=== PATIENT | male | born 1940 | race Caucasian/White ===

== ENCOUNTER → 2016-04-30 | Outpatient (CLI) | payer OTHER ==
[~2016-04-30] MED LIST: ANTIVERT25 MG PO; ASPIRIN81 M2 PO; CITRATE OF MAG296 ML PO; COLACE100 MG PO; DOXYCYCLINE 10100 MG PO; FINASTERIDE1 MG PO; FLOMAX0.4 MG PO; LISINOPRIL5 MG PO; MIRALAX17 GM PO; MIRALAX255 GM PO; NAPROSYN500 MG PO; NITROGLYCERIN0.4 MG SUBLING; SIMVASTATIN20 MG PO
== END ==
LOC: RAD 02:04
DX: K59.00 Constipation, unspecified (principal); R10.9 Unspecified abdominal pain

== ENCOUNTER → 2016-06-01 | Outpatient (CLI) | payer OTHER | LOC: CAT 09:08 | DX: K92.0 Hematemesis (principal); R91.8 Other nonspecific abnormal finding of lung field ==

== ENCOUNTER → 2016-06-14 | Outpatient (CLI) | payer OTHER | LOC: CAT 10:07 | DX: R91.8 Other nonspecific abnormal finding of lung field (principal) ==

== ENCOUNTER → 2016-11-03 | Outpatient (CLI) | payer OTHER | LOC: CAT 09:15 | DX: J47.9 Bronchiectasis, uncomplicated (principal) ==

== ENCOUNTER → 2016-12-13 | Outpatient (CLI) | payer OTHER | LOC: RAD 08:57 | DX: R07.9 Chest pain, unspecified (principal); R91.8 Other nonspecific abnormal finding of lung field ==

== ENCOUNTER → 2017-01-19 | Outpatient (CLI) | payer OTHER | LOC: CAT 09:07 | DX: J47.9 Bronchiectasis, uncomplicated (principal); R91.8 Other nonspecific abnormal finding of lung field ==

== ENCOUNTER → 2017-02-10 | Outpatient (CLI) | payer OTHER ==
[~2017-02-10] MED LIST changes: +ASPIR 8181 MG PO; +ATORVASTATIN CA40 MG PO; +AZITHROMYCIN 2250 MG PO; +DULCOLAX5 MG PO; +IMDUR 30 MG TAB30 M1 PO; +LIPITOR 20 MG T20 M1 PO; +LISINOPRIL10 MG PO; +MYAMBUTOL 400400 M1 PO; +PROSCAR 5MG TABL5 MG PO; +RIFAMPIN 300 M300 M1 PO
--- NOTE | ~2017-02-10 | O ---
[facility] [place] [address] OPERATIVE REPORT Name: RICKIE SEGURA Room #: REG [facility]#: [id number] Admission: 02/10/17 Attend Phys: Bo Freeman MD Discharge: Date of : 42 Report #: [id number] THIS REPORT FOR: //name// CC: Geraldo Freeman CLINICAL HISTORY: A 76-year-old white male with progressive infiltrates. The patient has been followed by Dr. Shade Santos. Concerns are possible chronic infectious processes such as Mycobacterium avium. A diagnostic bronchoscopy was performed. POSTOPERATIVE DIAGNOSIS: Mild purulent secretion seen involving the right lower lobe and the right middle lobe. Bronchoalveolar lavage was performed in the right middle lobe and right lower lobe. DESCRIPTION OF PROCEDURE: Following obtained consent and risks and benefits been explained to the patient, which included infection, bleeding, pneumothorax, the procedure was performed in the endoscopy suite. He received total 2 mg of Versed IV, fentanyl 100 mg IV. He also received nebulized lidocaine at 4% and 1% lidocaine was also used in the upper airways. A flexible fiberoptic bronchoscope was then introduced through the left naris without difficulty. We had to use a nasal Q-tip to widen the nasal passage with lidocaine jelly. The epiglottis was normal. Vocal cords were normal. Trachea was normal. Tonya was normal. The left main stem bronchus, left upper lobe and left lower lobe was normal. Right main stem bronchus were normal. Right upper lobe was normal. Right middle lobe had mild purulent secretions seen. Right lower lobe had mild purulent secretions seen emanating from the superior basal segment along with the posterior basal segment. The mucosa was mildly erythematous involving the right lower lobe and right middle lobe. Otherwise, no endobronchial lesion seen. Bronchoalveolar lavage was performed at the right middle lobe and right lower lobe at the proximal superior basal segment and the lateral basal segment with several aliquots of 20 mL of normal saline. With adequate return in the bronchial lavage ____, the specimen will be sent for microbiologic studies including Gram stain, culture and sensitivity, AFB smear, fungal smear along with cultures. Cytology will be also sent. [facility] [address] [place] [address] OPERATIVE REPORT Name: RICKIE SEGURA Room #: REG [facility].#: [id number] Admission: 02/10/17 Attend Phys: Bo Freeman MD Discharge: Date of : 41 Report #: [id number] The patient tolerated the procedure well, no complications. Vital signs and saturation throughout the study were within normal range. <ELECTRONICALLY SIGNED> By: Bo Freeman MD 02/11/17 1658 1709 1751 Bo Freeman MD /nt
--- NOTE | ~2017-02-10 | CNG ---
[facility] [place] [address] CYTO-NONGYN REPORT PROCEDURE Name: JAY,ART L Room #: REG LISA Jordan.#: [id number] Admission: 02/10/17 Date of : 42 Discharge: Report #: [id number] Path Case #: [id number] CYTOPATHOLOGY REPORT COLLECTION DATE: 02/10/2017 RECEIVED DATE: 02/10/2017 SUBMITTING PHYS: JACK Moses OTHER PHYS: Dr. Bo Shultz CLINICAL HISTORY: Progressive pulmonary infiltrates SPECIMEN(S) RECEIVED: A.Bronchoalveolar lavage, Right lower lobe * * * * * * * * * * * * FINAL DIAGNOSIS: A. Bronchoalveolar lavage, Right lower lobe: - No malignant epithelial cells identified. Bronchial epithelial cells and alveolar macrophages are present in a background of acute inflammation and debris. PATHOLOGIST: Lee Ann Ibarra M.D. REPORT ELECTRONICALLY SIGNED BY: Lee Ann Ibarra M.D. DATE/TIME: 02/11/2017 13:59 * * * * * * * * * * * * GROSS PATHOLOGY: A. Bronchoalveolar lavage, Right lower lobe: The specimen is submitted unfixed, labeled "Jay, Art L". Received by the Cytology Department is 15 mL of cloudy pink fluid. One ThinPrep slide was prepared. (lg02.10.2017) AIR FILLER(S): T[facility]AS Cerda[facility] INITIAL CPT CODE(S): A; 35684 Professional services performed by [facility] at [facility] [address], [place] [address] Technical services performed by [facility] at [address] [place] [address]., [address], [place] [address]. [facility] [address] [place] [address] CYTO-NONGYN REPORT PROCEDURE Name: RICKIE SEGURA Room #: MOISÉS Guzman#: [id number] Admission: 02/10/17 Date of : 42 Discharge: Report #: [id number] Path Case #: [id number] [place] [address] [address] [place] [address] PHONE: [phone] DIRECTOR: Tawanda Hernandez M.D. * * * END OF REPORT * * *
== END | disposition home or self-care (01) ==
LOC: CATH 06:39
DX: J20.9 Acute bronchitis, unspecified (principal); J98.8 Other specified respiratory disorders; Z79.82 Long term (current) use of aspirin; Z79.899 Other long term (current) drug therapy

== ENCOUNTER → 2017-03-03 | Outpatient (CLI) | payer OTHER ==
--- NOTE | ~2017-03-03 | HC ---
[facility] [place] [address] CONSULTATION Name: RICKIE SEGURA [facility] [id number] Admission: 03/03/17 Attend Phys: Julio C Lopez Discharge: Date of : 41 Report #: [id number] THIS REPORT FOR: //name// CC: Julio C Bowman MD DATE OF SERVICE: 03/03/2017 REASON FOR CONSULTATION: Mycobacterium avium lung infection. HISTORY OF PRESENT ILLNESS: The patient is a 76-year-old white man with history of bronchiectasis, referred for Infectious Disease opinion by Dr. Shade Santos. The patient for the most part is doing fairly well. He underwent a bronchoscopy by Dr. Bo Freeman on 02/10/2017 and the sputum culture revealed growth of Mycobacterium avium. Dr. Shade Santos did contact me sometime this week and requested an Infectious Disease opinion regarding Mycobacterium avium lung infection. The patient is doing fairly well. He has occasional sputum production. He has no systemic symptoms that suggest active ongoing infection. The patient's main concern is the fact that he had many CT scans of the chest and brings a magazine that discusses the risks involved with frequent exposure to radiation. DRUG ALLERGIES: None listed. MEDICATIONS: Aspirin 81 mg daily, atorvastatin 40 mg daily, docusate 100 mg daily, finasteride 5 mg daily, lisinopril 10 mg daily, p.r.n. nitroglycerin, polyethylene glycol daily, tamsulosin 0.4 mg daily. PAST MEDICAL HISTORY: Carotid artery disease, moderate disease on ultrasound. Coronary artery disease, coronary artery stenting in 1998. Previous episode of hemoptysis. Dyslipidemia. Hypertension. REVIEW OF SYSTEMS: Not much respiratory symptoms, but he is concerned about his significant weight loss of lately. 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 SOCIAL HISTORY: . One son and one daughter. They do not live here in town. The patient for the most part is rather lonesome. No tobacco. No alcohol. PHYSICAL EXAMINATION: GENERAL: A well-developed man. No distress. VITAL SIGNS: Weight 143 pounds, height 5 feet 11 inches, BP 141/71, pulse 66, [facility] [address] [place] [address] CONSULTATION Name: RICKIE SEGURA Room #: [facility]#: [id number] Admission: 03/03/17 Attend Phys: Julio C Lopez Discharge: Date of : 41 Report #: [id number] temperature 97.6, O2 saturation 98% on room air. HEENMT: Head normocephalic, atraumatic. Pupils reactive. Mouth: Upper and lower plates. NECK: Supple, no thyromegaly. LUNGS: Clear. HEART: S1, S2. No gallop or murmur. ABDOMEN: Soft, no masses or megaly. GENITALIA: Reveals atrophic testicles. LYMPH NODE: Negative. SKIN: Revealed multiple seborrheic keratoses in posterior chest. NEUROLOGIC: Grossly within normal limits. LABORATORY DATA: Sputum culture has revealed Mycobacterium avium complex on 02/10/2017, bronchoscopy specimen. I did request from the microbiology laboratory to perform sensitivity against antimycobacterial antibiotics. I did review CT scan of the chest from 01/19/2017 and note is made that the patient have bronchiectasis and nodular lesions, particularly on the right lung that has progressed compared to previous CT scans. The patient has expressed concern about many CT scans obtained in the last couple of years. ASSESSMENT: 1. Mycobacterium avium complex lung infection. 2. Bronchiectasis. 3. Coronary artery disease, status post stenting. 4. Weight loss, question etiology. 5. Question mild depression. SUGGESTIONS: Discuss treatment with 2 or 3 antimycobacterial antibiotics. The recommendation of antibiotic regimen is still pending sensitivity results that has been ordered today. The patient will contact me in a couple of weeks and I will try to see him in 2 to 3 weeks should sensitivities be ready, otherwise will postpone visit again. Final recommendation regarding regimen against Mycobacterium avium and duration of treatment pending sensitivity results. Dr. Santos, thank you for requesting my suggestions. <ELECTRONICALLY SIGNED> By: Julio C Manzo MD 03/04/17 0959 1430 1927 Julio C Manzo MD /nt
== END ==
LOC: SEN 09:02
DX: J47.9 Bronchiectasis, uncomplicated (principal); A31.0 Pulmonary mycobacterial infection; I25.10 Atherosclerotic heart disease of native coronary artery without angina pectoris; I10 Essential (primary) hypertension; R63.4 Abnormal weight loss; F32.9 Major depressive disorder, single episode, unspecified; Z95.5 Presence of coronary angioplasty implant and graft

== ENCOUNTER → 2017-03-30 | Outpatient (CLI) | payer OTHER ==
[2017-03-30 11:47] VITALS: BP 141/70
== END ==
LOC: SEN 08:43
DX: I25.10 Atherosclerotic heart disease of native coronary artery without angina pectoris (principal); E78.5 Hyperlipidemia, unspecified; J47.9 Bronchiectasis, uncomplicated

== ENCOUNTER → 2017-04-13 | Outpatient (CLI) | payer OTHER ==
[~2017-04-13] VITALS: Ht 182.9 cm; Wt 61.7 kg
[2017-04-13 11:14] VITALS: BP 137/68
== END ==
LOC: SEN 08:29
DX: J06.9 Acute upper respiratory infection, unspecified (principal)

== ENCOUNTER → 2017-05-04 | Outpatient (CLI) | payer OTHER ==
[~2017-05-04] MED LIST changes: -ASPIR 8181 MG PO; -ATORVASTATIN CA40 MG PO; -DULCOLAX5 MG PO; -IMDUR 30 MG TAB30 M1 PO
[2017-05-04 11:06] VITALS: BP 127/71
[2017-05-04 12:06] LABS: HEMATOCRIT 40.1 % (42.0-52.0); HEMOGLOBIN 13.4 gm/dL (14.0-18.0); MCH 30.6 pg (26.0-34.0); MCHC 33.5 g/dL (28.0-37.0); MCV 91.5 fL (80.0-100.0); PLATELET COUNT 195 thou/uL (150-400); RBC 4.38 mil/uL (4.50-6.00); RDW 15.3 % (10.5-14.5); WBC 6.6 thou/uL (4.0-11.0)
[2017-05-04 12:21] LABS: ALBUMIN 3.4 g/dL (3.4-5.0); CALCIUM 8.8 mg/dL (8.5-10.1); CREATININE 0.9 mg/dL (0.7-1.3); POTASSIUM 3.8 mmol/L (3.5-5.1); TOTAL BILIRUBIN 0.5 mg/dL (<0.1-1.0); TOTAL PROTEIN 7.2 g/dL (6.4-8.2)
[2017-05-04 13:07] LABS: ABSOLUTE NEUTROPHILS 4.6 thou/uL (1.4-8.2); PLATELET ESTIMATE NORMAL
== END ==
LOC: SEN 08:22
PROVIDERS: Internal Medicine Infectious Disease
DX: J06.9 Acute upper respiratory infection, unspecified (principal)

== ENCOUNTER → 2017-06-09 | Outpatient (CLI) | payer OTHER ==
[~2017-06-09] VITALS: Ht 180.3 cm; Wt 63.3 kg
[2017-06-09 11:09] VITALS: BP 139/60
[2017-06-09 12:06] LABS: ABSOLUTE NEUTROPHILS 4.4 thou/uL (1.4-8.2); BASOPHILS 1.2 % (0.0-2.0); EOSINOPHILS 1.2 % (0.0-3.0); HEMATOCRIT 39.9 % (42.0-52.0); HEMOGLOBIN 13.4 gm/dL (14.0-18.0); LYMPHOCYTES 17.6 % (24.0-44.0); MCHC 33.7 g/dL (28.0-37.0); MCV 91.9 fL (80.0-100.0); MONOCYTES 11.4 % (1.0-8.0); PLATELET COUNT 222 thou/uL (150-400); POLYS 68.6 % (36.0-66.0); RBC 4.34 mil/uL (4.50-6.00); RDW 15.5 % (10.5-14.5); WBC 6.4 thou/uL (4.0-11.0)
[2017-06-09 12:20] LABS: ALBUMIN 3.7 g/dL (3.4-5.0); CALCIUM 8.9 mg/dL (8.5-10.1); CREATININE 0.9 mg/dL (0.7-1.3); POTASSIUM 4.1 mmol/L (3.5-5.1); TOTAL BILIRUBIN 0.3 mg/dL (<0.1-1.0); TOTAL PROTEIN 7.3 g/dL (6.4-8.2)
== END ==
LOC: SEN 10:30
PROVIDERS: Internal Medicine Infectious Disease
DX: Z01.818 Encounter for other preprocedural examination (principal); I10 Essential (primary) hypertension; E78.00 Pure hypercholesterolemia, unspecified; H90.5 Unspecified sensorineural hearing loss

== ENCOUNTER 2017-06-22 19:03 | Inpatient (IN) | payer OTHER ==
[~2017-06-22] VITALS: Ht 182.9 cm; Wt 68.2 kg
--- NOTE | ~2017-06-22 | CATHLAB ---
[facility] [place] [address] INVASIVE PROCEDURE REPORT Name: RICKIE SEGURA Room #: 206-P [facility] IN ..#: [id number] Admission: 06/22/17 Attend Phys: Hemanth Jackson, Discharge: 06/24/17 Date of : 42 Date of Service: 06/27/17 1003 Report #: [id number] THIS REPORT FOR: //name// APPROVED REPORT Study performed: 06/24/2017 07:26:32 Patient Details Patient Status: Out-Patient Room #: The patient is a 76 year-old male Event Personnel Rosales Wyatt B2B Sales Consultant, Minerva Lord RN RN, Reyna Ku Sandifer, David Monitor Procedures Performed Left Heart Cath w/or w/o Coronaries [id number] [facility], supervision of conscious sedation Indication Positive stress test, Chest pain Risk Factors Coronary Artery DiseaseHypertension Procedure Narrative The Right Groin^ was infiltrated with 1% Lidocaine subcutaneous anesthesia. A PINNACLE 4FR Sheath #[id number] sheath was inserted into the RFA^. Coronary angiography was performed using coronary diagnostic catheters. The right coronary system was accessed and visualized with a JR4 catheter. The left coronary system was accessed and visualized with a JL4 catheter. The left ventricle was accessed and visualized with a PIGTAIL catheter. Left ventricular/Aortic Valve gradient assessed via catheter pullback. Hemostasis was obtained with manual pressure following sheath removal without any complications. There was no hematoma. Intraoperative Conscious Sedation Sedation start time: 9.06 Case end Time: .18 Fluoro Time: 2.08 minutes Dose: 2.08 mGy Contrast Type and Amount: Omnipaque 50 ml Coronary Angiography [facility] [place] [address] [place] [address] INVASIVE PROCEDURE REPORT Name: RICKIE SEGURA Michelle Room #: 206-P [facility].#: [id number] Admission: 06/22/17 Attend Phys: Hemanth Jackson, Discharge: 06/24/17 Date of : 42 Date of Service: 06/27/17 1003 Report #: [id number] The patient's coronary anatomy is right dominant. Diagnostic Cath Left Main Normal origin and caliber bifurcates left anterior descending left circumflex free of high-grade disease LAD Her caliber vessel which has a stent in the proximal region with approximately 30-50% in-stent restenosis. Does not appear to be flow-limiting. The LAD then continues on in the anterior interventricular sulcus with the distal third vessel size of approximately 1.2 mm in diameter there is a lesion that appears to be greater than 60-70%. It does not slow flow. The vessel continues on terminating as a bifurcating vessel at the apex Diagonal 1 Small-caliber vessel with moderate luminal irregularities noted. He has a 50% ostial lesion Circumflex Moderate caliber vessel normal origin proceeds in the AV groove posteriorly with her is a proximally 50% lesion prior to bifurcation to a marginal branches. Then terminates as a posterior wall marginal branch OM1 Moderate caliber vessel coursing along the lateral aspect of the heart with luminal irregularities but no high-grade lesions OM2 Small-caliber vessel and the posterior lateral wall of the heart where there is a moderate lesion at its course but does not appear to be flow-limiting. The vessel is small in diameter Right Coronary Normal origin and caliber proceeds in the AV groove giving rise to small marginal branches and proceeds posteriorly giving rise to posterior descending artery and posterior wall circulation. At the acute margin there is some "haziness" but does not appear to be significant lesion present R PDA SMALL caliber vessel without significant high-grade lesions Left Ventriculography Left Ventriculography was not performed. Hemodynamics The aortic pressure is 147/68 mmHg with a mean of 97 mmHg. The left ventricular pressure is 161/9 mmHg with a mean of mmHg. The left ventricular end diastolic pressure is 23 mmHg. There was no gradient across the aortic valve upon pullback. Pullback from the left ventricle to the aorta revealed no gradient across the aortic valve. Conclusion 1. Coronary artery disease, three-vessel A. moderate to high-grade distal LAD and a small-caliber vessel [address] [address] INVASIVE PROCEDURE REPORT Name: RICKIE SEGURA Room #: 206-P [facility] IN M.R.#: [id number] Admission: 06/22/17 Attend Phys: Hemanth Jackson, Discharge: 06/24/17 Date of : 42 Date of Service: 06/27/17 1003 Report #: [id number] B. moderate stenosis of the second marginal branch which is small caliber 2. Abnormal hemodynamics with mildly elevated left ventricular end-diastolic pressure Recommendations Cardiac Risk Reduction Program Aggressive Medical Therapy <ELECTRONICALLY SIGNED> By: Rosales Wyatt MD 06/27/171002 02 02 Rosales Wyatt MD /INF
--- NOTE | ~2017-06-22 | EKG ---
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
--- NOTE | ~2017-06-22 | 2DMMODE ---
[facility] [address] [place] [address] 2 D/M-MODE ECHOCARDIOGRAM Name: BRUNOCASIESADARICKIE Room #: 206-P [facility] .R.#: [id number] Admission: 06/22/17 Attend Phys: Hemanth Jackson, Discharge: Date of : 42 Date of Service: 06/23/17 1235 Report #: [id number] THIS REPORT FOR: //name// APPROVED REPORT Study performed: 06/23/2017 11:30:25 EXAM: Comprehensive 2D, Doppler, and color-flow Echocardiogram Patient Location: Echo lab Room #: 206 Status: routine BSA: 1.88 HR: 56 bpm BP: 126/68 mmHg Rhythm: NSR Other Information Study Quality: Good/Low parasternal window Indications Chest pain, HTN. Hx: CAD, stent, HTN, HLP, COPD 2D Dimensions RVDd: 40.57 mm LVEF(%): 65.91 (>50%) IVSd: 9.27 (7-11mm) LVOT Diam: 19.65 (18-24mm) LVDd: 44.53 mm PWd: 8.18 (7-11mm) LVDs: 28.45 (25-40mm) Aortic Root: 35.13 mm He's LVEF: 65.91 % Volumes Left Atrial Volume (Systole) Single Plane 4CH: 41.47 mL Single Plane 2CH: 45.77 mL LA ESV Index: 25.00 mL/m2 Aortic Valve AoV Peak Mir.: 1.34 m/s AO Peak Gr.: 7.13 mmHg LVOT Max P.32 mmHg LVOT Max V: 1.04 m/s ABDI Vmax: 2.36 cm2 Mitral Valve E/A Ratio: 1.3 MV Decel. Time: 165.23 ms [facility] [place] [address] 2 D/M-MODE ECHOCARDIOGRAM Name: RICKIE SEGURA Room #: 206-P [facility] M.R.#: [id number] Admission: 06/22/17 Attend Phys: Hemanth Jackson, Discharge: Date of : 42 Date of Service: 06/23/17 1235 Report #: [id number] MV E Max Mir.: 0.84 m/s MV A Mir.: 0.64 m/s MV PHT: 47.92 ms IVRT: 78.43 ms Pulmonary Valve PV Peak Mir.: 1.57 m/s PV Peak Gr.: 9.82 mmHg Pulmonary Vein P Vein S: 0.59 m/s P Vein A: 0.38 m/s P Vein D: 0.63 m/s P Vein A Dur.: 133.8 msec P Vein S/D Ratio: 0.94 Tricuspid Valve TR Peak Mir.: 2.62 m/s RAP Estimate: 5.00 mmHg TR Peak Gr.: 27.43 mmHg PA Pressure: 32.00 mmHg Left Ventricle The left ventricle is normal size. There is normal LV segmental wall motion. There is normal left ventricular wall thickness. Left ventricular systolic function is normal. LVEF is 55-60%. Moderate diastolic dysfunction is present (pseudonormal filling). Right Ventricle The right ventricle is normal size. The right ventricular systolic function is normal. Atria The left atrium size is normal. The right atrium size is normal. Aortic Valve The Aortic valve is sclerotic. No aortic regurgitation is present. There is no aortic valvular stenosis. Mitral Valve Mitral valve leaflets are calcified. Trace mitral regurgitation. No evidence of mitral valve stenosis. Tricuspid Valve The tricuspid valve is normal in structure. Mild tricuspid regurgitation. Estimated PAP is 30-35mmHg. Pulmonic Valve The pulmonary valve is normal in structure. [place] [address] 2 D/M-MODE ECHOCARDIOGRAM Name: RICKIE SEGURA Room #: 206-P [facility] IN [facility]#: [id number] Admission: 06/22/17 Attend Phys: Hemanth Jackson, Discharge: Date of : 42 Date of Service: 06/23/17 1235 Report #: [id number] valvular regurgitation. Great Vessels The aortic root is normal in size. Aortic arch is not well visualized. IVC is normal in size and collapses >50% with inspiration. Pericardium There is no pericardial effusion. <Conclusion> The left ventricle is normal size. LVEF is 55-60%. The Aortic valve is sclerotic. No aortic regurgitation is present. There is no aortic valvular stenosis. Mitral valve leaflets are calcified. Trace mitral regurgitation. No evidence of mitral valve stenosis. The tricuspid valve is normal in structure. Mild tricuspid regurgitation. Estimated PAP is 30-35mmHg. The pulmonary valve is normal in structure. Aortic arch is not well visualized. There is no pericardial effusion. <ELECTRONICALLY SIGNED> By: Rosales Wyatt MD 06/23/17 1235 1235 1235 Rosales Wyatt MD /INF
[2017-06-22 19:10] VITALS: BP 154/84
[2017-06-22] MEDS ORDERED: DULCOLAX5 MG PO (19:24)
[2017-06-22 19:35] LABS: ABSOLUTE NEUTROPHILS 3.5 thou/uL (1.4-8.2); BASOPHILS 0.2 % (0.0-2.0); EOSINOPHILS 2.2 % (0.0-3.0); HEMATOCRIT 39.6 % (42.0-52.0); HEMOGLOBIN 13.3 gm/dL (14.0-18.0); LYMPHOCYTES 25.4 % (24.0-44.0); MCHC 33.5 g/dL (28.0-37.0); MCV 92.4 fL (80.0-100.0); MONOCYTES 11.4 % (1.0-8.0); PLATELET COUNT 234 thou/uL (150-400); POLYS 60.8 % (36.0-66.0); RBC 4.29 mil/uL (4.50-6.00); RDW 15.9 % (10.5-14.5); WBC 5.7 thou/uL (4.0-11.0)
[2017-06-22 19:39] LABS: ANION GAP 8 mmol/L (7-16); BUN 12 mg/dL (7-18); CHLORIDE 104 mmol/L (98-107); CO2 28 mmol/L (21-32); CREATININE 0.9 mg/dL (0.7-1.3); GLUCOSE 98 mg/dL (74-106); POTASSIUM 3.7 mmol/L (3.5-5.1); SODIUM 140 mmol/L (136-145)
[2017-06-22 19:48] LABS: ALBUMIN 3.9 g/dL (3.4-5.0); MAGNESIUM 2.1 mg/dL (1.8-2.4); SGOT 31 U/L (15-37); SGPT 28 U/L (30-65); TOTAL BILIRUBIN 0.7 mg/dL (<0.1-1.0); TOTAL PROTEIN 7.5 g/dL (6.4-8.2); TROPONIN-I < 0.04 ng/mL (<0.06)
[2017-06-22 19:49] LABS: APTT 27.5 Seconds (24.5-32.8); PROTIME 10.2 Seconds (9.3-11.4)
[2017-06-22 20:22] VITALS: BP 128/64
[2017-06-22 20:27] VITALS: BP 118/59
[2017-06-22 20:47] VITALS: BP 124/68
[2017-06-23 00:18] VITALS: BP 143/78
[2017-06-23 04:31] VITALS: BP 122/72
[2017-06-23 07:29] VITALS: BP 126/68
[2017-06-23 15:24] VITALS: BP 138/63
[2017-06-23 19:40] VITALS: BP 147/81
[2017-06-24 03:25] VITALS: BP 129/76
[2017-06-24 07:55] VITALS: BP 135/73
[2017-06-24] MEDS ORDERED: IMDUR 30 MG TAB30 M1 PO (12:17)
[2017-06-24 15:14] VITALS: BP 143/74
== END 2017-06-24 15:55 | disposition home or self-care (01) | DRG 287 ==
LOC: ER 19:03 → 2N 20:18 → EROBS 20:18 → 2N 20:34 → ENTRNSPT 06-24 15:41 → EDTRNSPTSTS 06-24 15:48 → 2N 06-24 15:55
PROVIDERS: Emergency Medicine
PROC: 4A023N7 Measurement of Cardiac Sampling and Pressure, Left Heart, Percutaneous Approach (ICD-10-PCS; principal; 2017-06-24)
DX: I25.10 Atherosclerotic heart disease of native coronary artery without angina pectoris (principal); T82.855A Stenosis of coronary artery stent, initial encounter; A31.0 Pulmonary mycobacterial infection; E78.5 Hyperlipidemia, unspecified; I10 Essential (primary) hypertension; E78.00 Pure hypercholesterolemia, unspecified; N40.0 Benign prostatic hyperplasia without lower urinary tract symptoms; Z60.2 Problems related to living alone; J44.9 Chronic obstructive pulmonary disease, unspecified; Z79.899 Other long term (current) drug therapy; Z82.49 Family history of ischemic heart disease and other diseases of the circulatory system; Z79.82 Long term (current) use of aspirin
CPT/HCPCS: 10081

== ENCOUNTER → 2017-08-25 | Outpatient (CLI) | payer OTHER ==
[~2017-08-25] MED LIST changes: +DULCOLAX5 MG PO; +IMDUR 30 MG TAB30 M1 PO
== END ==
LOC: CAT 10:32
DX: I25.10 Atherosclerotic heart disease of native coronary artery without angina pectoris (principal); J47.9 Bronchiectasis, uncomplicated; E78.5 Hyperlipidemia, unspecified; I10 Essential (primary) hypertension

== ENCOUNTER → 2017-12-14 | Outpatient (CLI) | payer OTHER ==
[~2017-12-14] MED LIST changes: +ASPIR 8181 MG PO; +ATORVASTATIN CA40 MG PO
[2017-12-14 11:13] VITALS: BP 125/66
[2017-12-14 12:29] LABS: ABSOLUTE NEUTROPHILS 4.2 thou/uL (1.4-8.2); BASOPHILS 1.3 % (0.0-2.0); HEMATOCRIT 41.2 % (42.0-52.0); HEMOGLOBIN 14.3 gm/dL (14.0-18.0); LYMPHOCYTES 17.6 % (24.0-44.0); MCH 32.6 pg (26.0-34.0); MCHC 34.7 g/dL (28.0-37.0); MCV 93.9 fL (80.0-100.0); MONOCYTES 10.5 % (1.0-8.0); PLATELET COUNT 212 thou/uL (150-400); POLYS 69.6 % (36.0-66.0); RBC 4.39 mil/uL (4.50-6.00); WBC 6.1 thou/uL (4.0-11.0)
[2017-12-14 12:34] LABS: ALBUMIN 3.8 g/dL (3.4-5.0); CALCIUM 9.2 mg/dL (8.5-10.1); CREATININE 0.9 mg/dL (0.7-1.3); POTASSIUM 4.1 mmol/L (3.5-5.1); TOTAL BILIRUBIN 0.8 mg/dL (<0.1-1.0); TOTAL PROTEIN 7.5 g/dL (6.4-8.2)
== END ==
LOC: SEN 10:05
PROVIDERS: Internal Medicine Infectious Disease
DX: A31.2 Disseminated mycobacterium avium-intracellulare complex (DMAC) (principal)

== ENCOUNTER 2018-01-04 15:25 | Emergency (ER) | payer OTHER ==
[~2018-01-04] VITALS: Ht 180.3 cm; Wt 65.8 kg
[2018-01-04 17:08] LABS: URINE BILIRUBIN NEGATIVE (Negative); URINE BLOOD TRACE (Negative); URINE CLARITY CLEAR; URINE COLOR YELLOW; URINE GLUCOSE-RANDOM* NEGATIVE (Negative); URINE KETONES NEGATIVE (Negative); URINE LEUKOCYTES-REFLEX NEGATIVE (Negative); URINE NITRITE-REFLEX NEGATIVE (Negative); URINE PROTEIN (DIPSTICK) NEGATIVE (Negative); URINE SPECIFIC GRAVITY 1.025 (1.005-1.035); URINE UROBILINOGEN 0.2 E.U./dl (0.2-1.0)
[2018-01-04 19:16] VITALS: BP 152/77
== END 2018-01-04 19:18 | disposition home or self-care (01) ==
LOC: ER 15:25
PROVIDERS: Emergency Medicine
DX: R33.9 Retention of urine, unspecified (principal); I10 Essential (primary) hypertension; E78.00 Pure hypercholesterolemia, unspecified; Z95.5 Presence of coronary angioplasty implant and graft

== ENCOUNTER 2018-01-04 20:15 | Emergency (ER) | payer OTHER ==
[~2018-01-04] VITALS: Ht 180.3 cm; Wt 65.8 kg
[2018-01-04 20:27] VITALS: BP 144/78
== END 2018-01-04 21:15 | disposition home or self-care (01) ==
LOC: ER 20:15
DX: N36.8 Other specified disorders of urethra (principal); I10 Essential (primary) hypertension; E78.00 Pure hypercholesterolemia, unspecified; Z95.5 Presence of coronary angioplasty implant and graft

== ENCOUNTER → 2018-04-05 | Outpatient (CLI) | payer OTHER | LOC: CAT 10:31 | DX: I25.10 Atherosclerotic heart disease of native coronary artery without angina pectoris (principal); J47.9 Bronchiectasis, uncomplicated; R91.8 Other nonspecific abnormal finding of lung field ==

== ENCOUNTER → 2018-04-25 | Outpatient (CLI) | payer OTHER | LOC: MRI 11:53 | DX: M47.27 Other spondylosis with radiculopathy, lumbosacral region (principal); M48.07 Spinal stenosis, lumbosacral region ==

== ENCOUNTER → 2018-07-26 | Outpatient (CLI) | payer OTHER | LOC: RAD 09:12 | DX: J47.9 Bronchiectasis, uncomplicated (principal); R91.8 Other nonspecific abnormal finding of lung field; M47.814 Spondylosis without myelopathy or radiculopathy, thoracic region; M25.78 Osteophyte, vertebrae ==

== ENCOUNTER → 2018-11-21 | Outpatient (CLI) | payer OTHER ==
[~2018-11-21] MED LIST changes: +CIPRO500 M1 PO
== END ==
LOC: CAT 09:57
DX: R91.8 Other nonspecific abnormal finding of lung field (principal)

== ENCOUNTER 2018-12-19 06:55 | Day surgery (SDC) | payer OTHER ==
[~2018-12-19] VITALS: Ht 180.3 cm; Wt 63.5 kg
[~2018-12-19 06:55] MED LIST changes: -CIPRO500 M1 PO
[2018-12-19 07:55] VITALS: BP 132/72
[2018-12-20] MEDS ORDERED: CIPRO500 M1 PO (14:09)
--- NOTE | 2018-12-21 13:07 | PATH ---
[facility] [address] [place] [address] PATHOLOGY RPT PROCEDURE Name: RICKIE SEGURA Room #: [facility]..#: [id number] Admission: 12/19/18 Date of : 42 Discharge: 12/19/18 Report #: [id number] Path Case #: [id number] Note [facility] Accession Number: [id number] TESTS RESULT FLAG UNITS REF RANGE LAB Clinician Provided Cytology Information No. of containers..01 Other (Miscellaneous) Source: RML BAL DIAGNOSIS: RML BAL NEGATIVE FOR MALIGNANT CELLS. PROTEINACEOUS MATERIAL IS PRESENT. REACTIVE BRONCHIAL CELLS ARE PRESENT. PULMONARY MACROPHAGES (DUST CELLS) ARE PRESENT. Pathologist ICD10: 02 J47.9 Signed out by: 02 Maribell Peace MD, Pathologist NPI- [id number] Performed by: Eri Hobbs, Wood Carver Hand ([facility]) Gross description: 01 27ML, RED, CLOUDY /LCS 02/07/1840 0000 Local FLAG LEGEND: L-Low Normal,H-High Normal,LL-Alert Low,HH-Alert High <-Panic Low,>-Panic High,A-Abnormal,AA-Critical Abnormal Performed at: 01 [facility] [address] [facility] [address] [place] [address] Lit Ramos MD, [address] [address] Maribell Peace MD, Specimen Comment: A courtesy copy of this report has been sent to [phone] Specimen Comment: [phone] Specimen Comment: [id number] Specimen Comment: Report sent to Specimen Comment: A duplicate report has been generated due to demographic updates. Performed at: 01 [facility] [address] [place] [address] PATHOLOGY RPT PROCEDURE Name: RICKIE SEGURA [facility] [id number] Admission: 12/19/18 Date of : 42 Discharge: 12/19/18 Report #: [id number] Path Case #: [id number] [address] [facility], [place], [place] [id number] MD Lit Ramos MD Phone: [phone]
--- NOTE | 2018-12-21 13:07 | PATH ---
[facility] [address] [place] [address] PATHOLOGY RPT PROCEDURE Name: RICKIE SEGURA Room #: DEP [facility]..#: [id number] Admission: 12/19/18 Date of : 42 Discharge: 12/19/18 Report #: [id number] Path Case #: [id number] Note [facility] Accession Number: [id number] TESTS RESULT FLAG UNITS REF RANGE LAB Clinician Provided Cytology Information No. of containers..01 Other (Miscellaneous) Source: 01 L CYTO BRUSH TIP DIAGNOSIS: 02 RML CYTO BRUSH TIP NEGATIVE FOR MALIGNANT CELLS. REACTIVE BRONCHIAL CELLS ARE PRESENT. Signed out by: Maribell Peace MD, Pathologist NPI- [id number] Performed by: Sary Hobbs, Manager Loan ([facility]) Gross description: 01 20ML, COLORLESS, CLEAR /LCS 02/07/1840 0000 Local FLAG LEGEND: L-Low Normal,H-High Normal,LL-Alert Low,HH-Alert High <-Panic Low,>-Panic High,A-Abnormal,AA-Critical Abnormal Performed at: [address] [place] [address] Lit Ramos MD, [address] [address] Maribell Peace MD, Specimen Comment: A courtesy copy of this report has been sent to [phone] Specimen Comment: [phone] Specimen Comment: [id number] Specimen Comment: Report sent to / DR LUA Specimen Comment: A duplicate report has been generated due to demographic updates. Performed at: [address], [place], [place] [id number] MD Lit Ramos MD Phone: [phone]
--- NOTE | 2018-12-21 13:07 | PATH ---
[facility] [address] [place] [address] PATHOLOGY RPT PROCEDURE Name: RICKIE SEGURA Room #: [facility]..#: [id number] Admission: 12/19/18 Date of : 42 Discharge: 12/19/18 Report #: [id number] Path Case #: [id number] Note [facility] Accession Number: [id number] TESTS RESULT FLAG UNITS REF RANGE LAB Clinician Provided Cytology Information No. of containers..01 Slide Source: RML BRUSHING DIAGNOSIS: RML BRUSHING NEGATIVE FOR MALIGNANT CELLS. REACTIVE BRONCHIAL CELLS ARE PRESENT. PULMONARY MACROPHAGES (DUST CELLS) ARE PRESENT. Signed out by: 02 Maribell Peace MD, Pathologist NPI- [id number] Performed by: 01 Sary Hobbs Control Chemist ([facility]) FLAG LEGEND: L-Low Normal,H-High Normal,LL-Alert Low,HH-Alert High <-Panic Low,>-Panic High,A-Abnormal,AA-Critical Abnormal Performed at: [address] [place] [address] Lit Ramos MD, [address] [address] Maribell Peace MD, Specimen Comment: A courtesy copy of this report has been sent to [phone], [phone] Specimen Comment: [phone] Specimen Comment: Report sent to / DR LUA Specimen Comment: A duplicate report has been generated due to demographic updates. Performed at: [address], [place], [place] [id number] MD Lit Ramos MD Phone: [phone]
== END 2018-12-19 09:20 | disposition home or self-care (01) ==
LOC: OR 06:55 → TBA 06:55 → EDSTATUS 06:56 → OR 09:20 → CATH 19:52 → EDSTATUS 20:18 → CATH 20:18
DX: J47.9 Bronchiectasis, uncomplicated (principal); J98.09 Other diseases of bronchus, not elsewhere classified; I10 Essential (primary) hypertension; I25.10 Atherosclerotic heart disease of native coronary artery without angina pectoris; E78.5 Hyperlipidemia, unspecified; E78.00 Pure hypercholesterolemia, unspecified; N40.0 Benign prostatic hyperplasia without lower urinary tract symptoms; Z98.41 Cataract extraction status, right eye; Z98.42 Cataract extraction status, left eye; Z98.890 Other specified postprocedural states; Z79.899 Other long term (current) drug therapy; Z79.82 Long term (current) use of aspirin
CPT/HCPCS: 50010; 62110; 62900; 70005

== ENCOUNTER 2018-12-20 12:13 | Emergency (ER) | payer OTHER ==
[~2018-12-20] VITALS: Ht 180.3 cm; Wt 63.0 kg
[2018-12-20 12:59] LABS: ABSOLUTE NEUTROPHILS 13.9 thou/uL (1.4-8.2); HEMATOCRIT 35.1 % (42.0-52.0); HEMOGLOBIN 11.4 gm/dL (14.0-18.0); LYMPHOCYTES 1.7 % (24.0-44.0); MCH 30.1 pg (26.0-34.0); MCHC 32.3 g/dL (28.0-37.0); MCV 93.2 fL (80.0-100.0); MONOCYTES 9.6 % (1.0-8.0); PLATELET COUNT 215 thou/uL (150-400); POLYS 88.7 % (36.0-66.0); RBC 3.77 mil/uL (4.50-6.00); RDW 15.2 % (10.5-14.5); WBC 15.6 thou/uL (4.0-11.0)
[2018-12-20 13:16] LABS: CALCIUM 8.9 mg/dL (8.5-10.1); MAGNESIUM 1.7 mg/dL (1.8-2.4); POTASSIUM 3.6 mmol/L (3.5-5.1)
[2018-12-20 13:54] LABS: URINE BILIRUBIN NEGATIVE (Negative); URINE BLOOD NEGATIVE (Negative); URINE CLARITY CLEAR; URINE COLOR YELLOW; URINE GLUCOSE-RANDOM* NEGATIVE (Negative); URINE KETONES NEGATIVE (Negative); URINE LEUKOCYTES-REFLEX NEGATIVE (Negative); URINE NITRITE-REFLEX NEGATIVE (Negative); URINE PROTEIN (DIPSTICK) TRACE (Negative); URINE SPECIFIC GRAVITY 1.015 (1.005-1.035); URINE UROBILINOGEN 0.2 E.U./dl (0.2-1.0)
[2018-12-20] MEDS ORDERED: CIPRO500 M1 PO (14:09)
[2018-12-20 15:01] VITALS: BP 126/84
--- NOTE | 2018-12-21 17:04 | EKG ---
[place] [address] [facility] [place] [address] ELECTROCARDIOGRAM REPORT Name: RICKIE SEGURA [id number] Admission: 12/20/18 Attend Phys: Discharge: 12/20/18 Date of : 42 Report #: [id number] THIS REPORT FOR: //name// 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1940 Requested By: Arturo Torrez Order Number: [id number] MD: Kwame Sierra Measurements Intervals [place] Rate: 90 P: 63 SC: 165 QRS: 61 QRSD: 87 T: 64 QT: 332 QTc: 407 Interpretive Statements Sinus rhythm Left atrial enlargement Compared to ECG 06/22/2017 19:30:40 No significant changes Electronically Signed On 12-21-2018 17:04:49 INTELLIGENCE RESEARCH SPECIALIST by Kwame Sierra [email or web address] <ELECTRONICALLY SIGNED> By: Kwame Sierra MD, [facility] 12/21/18 1704 1247 1247 Kwame Sierra MD, FACC /EPI
== END 2018-12-20 15:02 | disposition home or self-care (01) ==
LOC: ER 12:13
PROVIDERS: Emergency Medicine
DX: S09.8XXA Other specified injuries of head, initial encounter (principal); R06.02 Shortness of breath; R42 Dizziness and giddiness; I10 Essential (primary) hypertension; Z95.2 Presence of prosthetic heart valve; E78.00 Pure hypercholesterolemia, unspecified; Z98.890 Other specified postprocedural states; W18.39XA Other fall on same level, initial encounter; Y93.89 Activity, other specified; Y92.009 Unspecified place in unspecified non-institutional (private) residence as the place of occurrence of the external cause; Y99.8 Other external cause status

== ENCOUNTER → 2019-02-12 | Outpatient (CLI) | payer OTHER ==
[~2019-02-12] MED LIST changes: +CIPRO500 M1 PO
== END ==
LOC: SJCVC 11:00
DX: I25.10 Atherosclerotic heart disease of native coronary artery without angina pectoris (principal); I10 Essential (primary) hypertension; E78.00 Pure hypercholesterolemia, unspecified; Z79.82 Long term (current) use of aspirin; Z79.899 Other long term (current) drug therapy

== ENCOUNTER 2019-03-25 18:09 | Emergency (ER) | payer OTHER ==
[~2019-03-25] VITALS: Ht 180.3 cm; Wt 63.5 kg
[2019-03-25 21:21] VITALS: BP 153/78
== END 2019-03-25 21:15 | disposition home or self-care (01) ==
LOC: ER 18:09
DX: K56.41 Fecal impaction (principal); R33.9 Retention of urine, unspecified; I10 Essential (primary) hypertension; E78.00 Pure hypercholesterolemia, unspecified; Z98.890 Other specified postprocedural states

== ENCOUNTER → 2019-06-04 | Outpatient (CLI) | payer OTHER | LOC: RAD 09:39 | DX: R04.2 Hemoptysis (principal) ==

== ENCOUNTER 2019-07-27 10:51 | Emergency (ER) | payer OTHER ==
[~2019-07-27] VITALS: Ht 180.3 cm; Wt 63.5 kg
[2019-07-27] MEDS ORDERED: RIFABUTIN150 MG PO (11:12)
[2019-07-27] MEDS ORDERED: ETHAMBUTOL HCL400 MG PO (11:12)
[2019-07-27] MEDS ORDERED: ETHAMBUTOL HCL100 MG PO (11:12)
[2019-07-27] MEDS ORDERED: AZITHROMYCIN250 MG PO (11:13)
[2019-07-27 11:21] LABS: ABSOLUTE NEUTROPHILS 7.6 thou/uL (1.4-8.2); BASOPHILS 0.8 % (0.0-2.0); HEMATOCRIT 38.2 % (42.0-52.0); HEMOGLOBIN 12.8 gm/dL (14.0-18.0); LYMPHOCYTES 6.6 % (24.0-44.0); MCH 31.9 pg (26.0-34.0); MCHC 33.4 g/dL (28.0-37.0); MCV 95.5 fL (80.0-100.0); MONOCYTES 10.3 % (1.0-8.0); PLATELET COUNT 325 thou/uL (150-400); POLYS 80.3 % (36.0-66.0); RDW 16.5 % (10.5-14.5); WBC 9.4 thou/uL (4.0-11.0)
[2019-07-27 11:29] LABS: ANION GAP 5 mmol/L (7-16); BUN 13 mg/dL (7-18); CALCIUM 8.8 mg/dL (8.5-10.1); CHLORIDE 102 mmol/L (98-107); CO2 32 mmol/L (21-32); CREATININE 0.9 mg/dL (0.7-1.3); GLUCOSE 122 mg/dL (74-106); POTASSIUM 3.9 mmol/L (3.5-5.1); SODIUM 139 mmol/L (136-145)
[2019-07-27 11:39] LABS: ALBUMIN 3.5 g/dL (3.4-5.0); MAGNESIUM 2.2 mg/dL (1.8-2.4); SGOT 308 U/L (15-37); SGPT 242 U/L (30-65); TOTAL BILIRUBIN 0.9 mg/dL (0.2-1.0); TOTAL PROTEIN 7.2 g/dL (6.4-8.2); TROPONIN-I <0.06 ng/mL (<0.06)
[2019-07-27] MEDS ORDERED: NITROGLYCERIN0.4 MG SUBLING (13:31)
[2019-07-27 13:55] VITALS: BP 145/65
--- NOTE | 2019-07-28 11:50 | EKG ---
[facility] [place] [address] ELECTROCARDIOGRAM REPORT Name: RICKIE SEGURA [id number] Admission: 07/27/19 Attend Phys: Discharge: 07/27/19 Date of : 42 Report #: [id number] THIS REPORT FOR: cc: Hemanth Jackson MD, Neal A. MD Couchonnal, Luis F. MD ~ THIS REPORT FOR: //name// 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 : 1940 Requested By: Tobias Broussard Order Number: [id number] : Kalyan Manzo Measurements Intervals [place] Rate: 93 P: 74 TN: 158 QRS: 62 QRSD: 91 T: 57 QT: 330 QTc: 411 Interpretive Statements Sinus rhythm Atrial premature complex Left atrial enlargement Minimal ST depression, inferior leads Compared to ECG 12/20/2018 12:47:38 Atrial premature complex(es) now present ST (T wave) deviation now present Electronically Signed On 07-28-2019 11:49:22 CDT by Kalyan Manzo [email or web address] <ELECTRONICALLY SIGNED> By: Kalyan Manzo MD 07/28/19 1149 1054 1054 Kalyan Manzo MD /EPI
== END 2019-07-27 14:19 | disposition home or self-care (01) ==
LOC: ER 10:51
PROVIDERS: Emergency Medicine
DX: I25.10 Atherosclerotic heart disease of native coronary artery without angina pectoris (principal); R79.89 Other specified abnormal findings of blood chemistry; I10 Essential (primary) hypertension; E78.5 Hyperlipidemia, unspecified; Z79.2 Long term (current) use of antibiotics; Z79.899 Other long term (current) drug therapy

== ENCOUNTER → 2019-07-30 | Outpatient (CLI) | payer OTHER ==
[~2019-07-30] MED LIST changes: +AZITHROMYCIN250 MG PO; +ETHAMBUTOL HCL100 MG PO; +ETHAMBUTOL HCL400 MG PO; +RIFABUTIN150 MG PO
== END ==
LOC: SJCVCIMAG 13:26
PROVIDERS: ATTEND Internal Medicine Cardiovascular Disease
DX: R00.1 Bradycardia, unspecified (principal); R94.31 Abnormal electrocardiogram [ECG] [EKG]; I25.10 Atherosclerotic heart disease of native coronary artery without angina pectoris; I10 Essential (primary) hypertension; E78.5 Hyperlipidemia, unspecified; E78.00 Pure hypercholesterolemia, unspecified; Z79.82 Long term (current) use of aspirin; Z79.899 Other long term (current) drug therapy; Z91.81 History of falling; Z82.49 Family history of ischemic heart disease and other diseases of the circulatory system

== ENCOUNTER → 2019-09-11 | Outpatient (CLI) | payer OTHER | LOC: RAD 10:20 | PROVIDERS: ATTEND Specialist | DX: K71.9 Toxic liver disease, unspecified (principal); J98.4 Other disorders of lung; Z87.81 Personal history of (healed) traumatic fracture ==

== ENCOUNTER → 2019-10-31 | Outpatient (CLI) | payer OTHER | LOC: SJCVC 13:10 | PROVIDERS: ATTEND Internal Medicine Cardiovascular Disease | DX: R94.31 Abnormal electrocardiogram [ECG] [EKG] (principal); R07.9 Chest pain, unspecified; I25.10 Atherosclerotic heart disease of native coronary artery without angina pectoris; I10 Essential (primary) hypertension; E78.00 Pure hypercholesterolemia, unspecified ==

== ENCOUNTER → 2019-11-08 | Outpatient (CLI) | payer OTHER | LOC: CAT 11-06 14:18 | PROVIDERS: ATTEND Internal Medicine | DX: J47.9 Bronchiectasis, uncomplicated (principal); A31.0 Pulmonary mycobacterial infection ==

== ENCOUNTER → 2020-01-10 | Outpatient (CLI) | payer OTHER | LOC: SJCVC 10:54 | PROVIDERS: ATTEND Internal Medicine Cardiovascular Disease | DX: I25.10 Atherosclerotic heart disease of native coronary artery without angina pectoris (principal); I10 Essential (primary) hypertension; E78.00 Pure hypercholesterolemia, unspecified; R07.9 Chest pain, unspecified; Z95.5 Presence of coronary angioplasty implant and graft; Z79.82 Long term (current) use of aspirin; Z79.899 Other long term (current) drug therapy ==

== ENCOUNTER 2020-01-21 20:48 | Emergency (ER) | payer OTHER ==
[~2020-01-21] VITALS: Ht 180.3 cm; Wt 64.9 kg
[2020-01-21] MEDS ORDERED: MOXIFLOXACIN H400 MG PO (21:01)
[2020-01-22 01:08] LABS: HEMATOCRIT 40.2 % (42.0-52.0); HEMOGLOBIN 13.3 gm/dL (14.0-18.0); MCH 31.6 pg (26.0-34.0); MCHC 33.1 g/dL (28.0-37.0); MCV 95.5 fL (80.0-100.0); PLATELET COUNT 221 thou/uL (150-400); RBC 4.21 mil/uL (4.50-6.00); WBC 5.8 thou/uL (4.0-11.0)
[2020-01-22 01:13] LABS: ANION GAP 13 mmol/L (7-16); BUN 14 mg/dL (7-18); CHLORIDE 105 mmol/L (98-107); CO2 25 mmol/L (21-32); CREATININE 0.9 mg/dL (0.7-1.3); GLUCOSE 103 mg/dL (74-106); POTASSIUM 3.7 mmol/L (3.5-5.1); SODIUM 143 mmol/L (136-145)
[2020-01-22 01:15] LABS: APTT 26.6 Seconds (24.5-32.8); INR 1.1; PROTIME 10.8 Seconds (9.3-11.4)
[2020-01-22 01:20] LABS: TROPONIN-I <0.06 ng/mL (<0.06)
[2020-01-22 02:50] LABS: ABSOLUTE NEUTROPHILS 3.9 thou/uL (1.4-8.2); PLATELET ESTIMATE NORMAL
[2020-01-22 03:46] VITALS: BP 155/81
--- NOTE | 2020-01-22 15:05 | EKG ---
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1940 Requested By: Arturo Torrez Order Number: [id number] MD: Jonathan Brooks Measurements Intervals [place] Rate: 63 P: 64 MI: 169 QRS: 56 QRSD: 92 T: 63 QT: 436 QTc: 447 Interpretive Statements Sinus rhythm Probable left atrial enlargement Probable left ventricular hypertrophy Compared to ECG 07/27/2019 10:54:57 Atrial premature complex(es) no longer present ST (T wave) deviation no longer present Electronically Signed On 01-22-2020 15:05:44 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
== END 2020-01-22 03:46 | disposition home or self-care (01) ==
LOC: ER 20:48
PROVIDERS: Emergency Medicine
DX: A31.0 Pulmonary mycobacterial infection (principal); I10 Essential (primary) hypertension; E78.5 Hyperlipidemia, unspecified; Z79.82 Long term (current) use of aspirin; Z79.899 Other long term (current) drug therapy

== ENCOUNTER → 2020-04-16 | Outpatient (CLI) | payer OTHER ==
[~2020-04-16] MED LIST changes: +MOXIFLOXACIN H400 MG PO
== END ==
LOC: CAT 13:47
PROVIDERS: ATTEND Specialist
DX: J47.9 Bronchiectasis, uncomplicated (principal); A31.0 Pulmonary mycobacterial infection; R91.8 Other nonspecific abnormal finding of lung field

== ENCOUNTER → 2020-07-18 | Outpatient (CLI) | payer OTHER | LOC: SJCVCIMAG 09:17 | PROVIDERS: ATTEND Internal Medicine Cardiovascular Disease | DX: I08.2 Rheumatic disorders of both aortic and tricuspid valves (principal); I27.20 Pulmonary hypertension, unspecified; R00.1 Bradycardia, unspecified; I25.10 Atherosclerotic heart disease of native coronary artery without angina pectoris; I10 Essential (primary) hypertension; E78.5 Hyperlipidemia, unspecified; E78.00 Pure hypercholesterolemia, unspecified; R42 Dizziness and giddiness; Z98.61 Coronary angioplasty status; Z98.890 Other specified postprocedural states; Z79.82 Long term (current) use of aspirin; Z79.899 Other long term (current) drug therapy; Z82.49 Family history of ischemic heart disease and other diseases of the circulatory system ==

== ENCOUNTER → 2020-08-06 | Outpatient (CLI) | payer OTHER | LOC: RAD 14:26 | PROVIDERS: ATTEND Specialist | DX: A31.0 Pulmonary mycobacterial infection (principal) ==

== ENCOUNTER → 2020-10-29 | Outpatient (CLI) | payer OTHER | LOC: MRI 07:44 | PROVIDERS: ATTEND Psychiatry & Neurology Neuromuscular Medicine | DX: J47.9 Bronchiectasis, uncomplicated (principal); R91.8 Other nonspecific abnormal finding of lung field; G93.89 Other specified disorders of brain; J34.89 Other specified disorders of nose and nasal sinuses; R41.3 Other amnesia; I25.10 Atherosclerotic heart disease of native coronary artery without angina pectoris ==

== ENCOUNTER 2020-12-04 09:42 | Inpatient (IN) | payer OTHER ==
[~2020-12-04] VITALS: Ht 180.3 cm; Wt 58.5 kg
[2020-12-04 09:49] VITALS: BP 131/60
[2020-12-04] MEDS ORDERED: LISINOPRIL20 MG PO (09:52)
[2020-12-04 10:18] LABS: ABSOLUTE NEUTROPHILS 14.5 thou/uL (1.4-8.2); EOSINOPHILS 0.1 % (0.0-3.0); HEMATOCRIT 36.6 % (42.0-52.0); HEMOGLOBIN 12.1 gm/dL (14.0-18.0); LYMPHOCYTES 2.5 % (24.0-44.0); MCHC 33.1 g/dL (28.0-37.0); MCV 93.8 fL (80.0-100.0); MONOCYTES 6.3 % (1.0-8.0); PLATELET COUNT 388 thou/uL (150-400); POLYS 90.1 % (36.0-66.0); RDW 15.1 % (10.5-14.5); WBC 16.1 thou/uL (4.0-11.0)
[2020-12-04 10:35] LABS: CALCIUM 8.9 mg/dL (8.5-10.1); CREATININE 0.8 mg/dL (0.7-1.3)
[2020-12-04 10:45] LABS: ALBUMIN 3.3 g/dL (3.4-5.0); TOTAL BILIRUBIN 0.5 mg/dL (0.2-1.0); TOTAL PROTEIN 7.5 g/dL (6.4-8.2)
[2020-12-05] VITALS (8 sets, daily range): BP systolic 123–154; BP diastolic 58–81
--- NOTE | 2020-12-05 01:30 | NUR ---
Pt. arrived to the unit from the emergency room accompanied by staff. He is alert and oriented. Pt. was oriented to staff and room. He offers no com- plaints. Admission completed by house worker. Up with standby assist to the bathroom.
[2020-12-05 06:10] LABS: HEMATOCRIT 35.7 % (42.0-52.0); HEMOGLOBIN 11.7 gm/dL (14.0-18.0); MCH 30.7 pg (26.0-34.0); MCHC 32.9 g/dL (28.0-37.0); MCV 93.5 fL (80.0-100.0); RBC 3.82 mil/uL (4.50-6.00); RDW 14.6 % (10.5-14.5); WBC 16.1 thou/uL (4.0-11.0)
[2020-12-05 06:38] LABS: CALCIUM 8.3 mg/dL (8.5-10.1); CREATININE 0.8 mg/dL (0.7-1.3); POTASSIUM 4.3 mmol/L (3.5-5.1)
--- NOTE | 2020-12-05 08:51 | HC ---
[facility] [place] [address] CONSULTATION Name: RICKIE SEGURA Room #: 459-P ADM IN M.R.#: [id number] Admission: 12/04/20 Attend Phys: Hemanth Jackson MD Discharge: Date of : 42 Report #: [id number] THIS REPORT FOR: cc: Hemanth Jackson MD, Neal A. MD Barry, Joseph W. MD ~ DATE OF SERVICE: 12/04/2020 INFECTIOUS DISEASE CONSULTATION ATTENDING PHYSICIAN: Dr. Jackson. REASON FOR EVALUATION: Hemoptysis. HISTORY OF PRESENT SUBJECTIVE: Chart reviewed. The patient examined. This is a 80-year-old gentleman with known history of hypertension and coronary artery disease. 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 He apparently was feeling generally well; however, woke up this morning, was found to have hemoptysis, bright red blood. He does describe it as coughing as oppose to retching. He denied significant associated shortness of breath. He has not had fevers or chills. He states his appetite has been relatively stable, although somewhat diminished. He denies significant weight change. He notes again he was on combination therapy with moxifloxacin and ethambutol, presumably for atypical mycobacterial infection. He notes he discontinued this perhaps up to a year ago. CBC showed a mildly elevated white count of 16,000, hemoglobin is 12.1. Electrolytes: Sodium 132. Chest x-ray shows mild to moderate scattered bilateral multifocal infiltrates compared to film in 07/2020. CTA of the chest, no evidence of pulmonary emboli progression of multifocal nodule and somewhat mass-like opacities bilateral lungs. Coronavirus testing was negative. ALLERGIES: None known. CURRENT MEDICATIONS: Include sublingual nitroglycerin, lisinopril, aspirin, atorvastatin, tamsulosin, and finasteride. PAST MEDICAL HISTORY: Hypertension, coronary artery disease, BPH, hypercholesterolemia, history of atypical mycobacterial infection. SOCIAL HISTORY: Nonsmoker, no ethanol, no illicit drug use. FAMILY HISTORY: Noncontributory. REVIEW OF SYSTEMS: Otherwise, unremarkable 12-point review of systems. PHYSICAL EXAMINATION: [address] [address] CONSULTATION Name: RICKIE SEGURA Room #: 459-P [facility] IN ..#: [id number] Admission: 12/04/20 Attend Phys: Hemanth Jackson MD Discharge: Date of : 42 Report #: [id number] GENERAL: Alert, cooperative, appears somewhat chronically ill, pleasant, mild distress. VITAL SIGNS: Temperature 97.8, pulse 74, respirations 12, blood pressure 152/73. SKIN: Warm, dry, no rashes. HEENT: Normocephalic. Extraocular muscles intact. NECK: Supple. LUNGS: Bilateral scattered coarse breath sounds. HEART: Regular, do not appreciate a murmur. ABDOMEN: Soft, nontender. EXTREMITIES: No cyanosis. GENITOURINARY AND RECTAL: Deferred. LABORATORY DATA: Coronavirus testing was negative. Chest x-ray as described above. Electrolytes: Sodium 132, potassium 5.0, chloride 98, bicarbonate is 26, BUN and creatinine 14 and 0.8, anion gap of 8. LFTs unremarkable. Glucose of 112, albumin ____, total protein 7.5. CBC: White count 16.1, H and H 12.1 and 36.6, platelets of 388. ASSESSMENT AND PLAN: Hemoptysis with progression radiographically appears to be an atypical pneumonitis. We will try to obtain a sputum. I have discussed with the patient it is seemingly fairly clear it is hemoptysis and not hematemesis or evidence of hemorrhage relating to the upper tract. Try to obtain records, discussed with Dr. Heard. At this point, he is not overtly toxic, but would be concerned about sentinel bleed in case he would with uncontrolled situation at home. <ELECTRONICALLY SIGNED> By: Dell Booth MD 12/05/20 0851 1502 2204 Dell Booth MD /nt
[2020-12-06 00:12] VITALS: BP 132/59
--- NOTE | 2020-12-06 04:38 | NUR ---
ASSUMED CARE OF PT AT 1930. REPORT RECIEVED. ARNALDO ASSESSMENT COMPLETE. MEDS GIVEN ORDERED. PT DENIES ANY PAIN OR DISCOMFORT. IVF RUNNING ORDERED. PROVIDED EDUCATION ON POC. PT VERBALIZED APPRECIATION. HOURLY ROUNDING CONTINUING. CALL LIGHT IN REACH
[2020-12-06 05:01] VITALS: BP 142/71
[2020-12-06 07:45] VITALS: BP 137/69
[2020-12-06 10:02] VITALS: BP 137/69
--- NOTE | 2020-12-06 10:53 | NUR ---
PT DISCHARGING TODAY TO [place] [facility] FAXED REFERRAL TO [facility] ([place], [place]) SPOKE WITH KAELA IN INTAKE SHE CAN ACCEPT PT AT DC. FAXED DC ORDERS/SUMMARY RECEIVED CONFIRMATION THEY WILL CONTACT PT TO ARRANGE VISITS.
[2020-12-06 11:44] LABS: HEMATOCRIT 35.3 % (42.0-52.0); HEMOGLOBIN 11.8 gm/dL (14.0-18.0); MCH 31.4 pg (26.0-34.0); MCHC 33.5 g/dL (28.0-37.0); MCV 93.7 fL (80.0-100.0); RBC 3.76 mil/uL (4.50-6.00); RDW 14.7 % (10.5-14.5); WBC 13.2 thou/uL (4.0-11.0)
[2020-12-06 11:51] LABS: CALCIUM 8.5 mg/dL (8.5-10.1); CREATININE 0.8 mg/dL (0.7-1.3); POTASSIUM 4.2 mmol/L (3.5-5.1)
[2020-12-06 17:01] VITALS: BP 140/69
[2020-12-06 17:40] VITALS: BP 137/69
--- NOTE | 2020-12-06 18:30 | NUR ---
PT ASSESSED AT START OF SHIFT. DR. LUA IN EARLY TO SEE PT AND WRITE FOR DISCHARGE ORDERS IF OK W/ ID. TALKED W/ DR. BURT AND OK FOR DC SO PT DISCHARGE W/ BROTHER TO HOME W/ HOME HEALTH AND F/U W/ NEXT WEEK.
== END 2020-12-06 18:20 | disposition home health service (06) | DRG 177 ==
LOC: ER 09:42 → 4W 16:07 → EROBS 16:07 → 4W 12-05 01:01
PROVIDERS: Emergency Medicine; ADMIT Family Medicine; ATTEND Family Medicine
DX: A31.0 Pulmonary mycobacterial infection (principal); J96.20 Acute and chronic respiratory failure, unspecified whether with hypoxia or hypercapnia; R04.2 Hemoptysis; Z20.822 Contact with and (suspected) exposure to COVID-19; I10 Essential (primary) hypertension; N40.0 Benign prostatic hyperplasia without lower urinary tract symptoms; J18.9 Pneumonia, unspecified organism; I25.10 Atherosclerotic heart disease of native coronary artery without angina pectoris; E78.00 Pure hypercholesterolemia, unspecified; R53.81 Other malaise; Z79.82 Long term (current) use of aspirin; Z95.5 Presence of coronary angioplasty implant and graft; Z98.42 Cataract extraction status, left eye; Z98.41 Cataract extraction status, right eye; I25.2 Old myocardial infarction; Z79.899 Other long term (current) drug therapy
CPT/HCPCS: 10045

== ENCOUNTER → 2021-01-16 | Outpatient (CLI) | payer OTHER ==
[~2021-01-16] MED LIST changes: +LISINOPRIL20 MG PO
== END | disposition home or self-care (01) ==
LOC: SJCVC 10:40
PROVIDERS: ATTEND Internal Medicine Cardiovascular Disease
DX: I10 Essential (primary) hypertension (principal); I25.10 Atherosclerotic heart disease of native coronary artery without angina pectoris; E78.00 Pure hypercholesterolemia, unspecified; Z72.89 Other problems related to lifestyle; Z79.899 Other long term (current) drug therapy; Z82.49 Family history of ischemic heart disease and other diseases of the circulatory system

== ENCOUNTER → 2021-02-13 | Outpatient (CLI) | payer OTHER | LOC: SJCVC 09:01 | PROVIDERS: ATTEND Internal Medicine Cardiovascular Disease | DX: I25.10 Atherosclerotic heart disease of native coronary artery without angina pectoris (principal); E78.00 Pure hypercholesterolemia, unspecified; I10 Essential (primary) hypertension; Z72.89 Other problems related to lifestyle; Z79.899 Other long term (current) drug therapy; Z82.49 Family history of ischemic heart disease and other diseases of the circulatory system ==

== ENCOUNTER → 2021-03-30 | Outpatient (CLI) | payer OTHER | LOC: CAT 09:33 | PROVIDERS: ATTEND Specialist | DX: A31.0 Pulmonary mycobacterial infection (principal); J47.9 Bronchiectasis, uncomplicated; R91.8 Other nonspecific abnormal finding of lung field; I25.10 Atherosclerotic heart disease of native coronary artery without angina pectoris ==